=== PATIENT | male | born 1990 | race Caucasian/White ===

== ENCOUNTER 2023-06-16 12:36 | Emergency (ER) | payer MEDICAID ==
[~2023-06-16] VITALS: Ht 185.4 cm; Wt 91.2 kg
[2023-06-16 13:15] VITALS: TEMP 98.4
[2023-06-16] MEDS ORDERED: MINERAL OIL 133 ML (PYXIS) 1 EA ENEMA RC ONE (14:18)
[2023-06-16 14:19] LABS: ALBUMIN 2.9 g/dL (3.4-5.0); BILIRUBIN,DIRECT 0.1 mg/dL (0.0-0.2); BILIRUBIN,TOTAL 0.4 mg/dL (0.2-1.0); CALCIUM, SERUM 8.1 mg/dL (8.5-10.1); CREATININE 1.1 mg/dL (0.6-1.3); POTASSIUM 4.7 mmol/L (3.5-5.1); TOTAL PROTEIN, SERUM 6.6 g/dL (6.4-8.2)
[2023-06-16 14:20] LABS: INR 0.98 (0.91-1.10); PARTIAL THROMBOPLASTIN TIME 28.9 SEC (24.3-34.3); PROTHROMBIN TIME 10.4 SECS (9.2-11.1)
[2023-06-16] MEDS: MINERAL OIL 133 ML (PYXIS) 1 EA ENEMA RC ONE (14:36)
[2023-06-16] MEDS: IV NS 0.9% 1,000 ML BAG IV ONE (15:00)
[2023-06-16 15:09] LABS: BASOPHILS % (AUTO) 0.3 % (0.0-2.0); EOSINOPHILS # (AUTO) 0.1 K/uL (0.0-0.7); EOSINOPHILS % (AUTO) 2.6 % (0.0-6.0); HEMATOCRIT 35 % (39-51); HEMOGLOBIN 12.1 g/dL (13.5-17.5); LYMPHOCYTES # (AUTO) 2.3 K/uL (0.8-4.8); MEAN CORPUSCULAR HEMOGLOBIN 33 PG (26.0-33.0); MEAN CORPUSCULAR HGB CONC 35 g/dl (31.0-36.0); MEAN CORPUSCULAR VOLUME 94 fL (80-96); MONOCYTES # (AUTO) 0.3 K/uL (0.1-1.30); NEUTROPHILS # (AUTO) 1.9 K/uL (1.8-8.9); NEUTROPHILS % (AUTO) 41.1 % (43.0-81.0); PLATELET COUNT (AUTO) 126 K/uL (150-450); RED CELL DISTRIBUTION WIDTH 14.1 % (11.5-15.0); WHITE BLOOD COUNT (AUTO) 4.7 K/uL (4.3-11.0)
[2023-06-16] MEDS ORDERED: DIATR MEGLU/DIATRIZOATE SODIUM 30 ML BOTTLE (GASTROGRAPHIN) ONE (15:27)
[2023-06-16] MEDS: DIATR MEGLU/DIATRIZOATE SODIUM 120 ML BOTTLE (GASTROGRAPHIN) PO ONE (15:30)
[2023-06-16] MEDS ORDERED: IOHEXOL-300 100 ML VIAL IV ONE (17:21)
[2023-06-16] MEDS ORDERED: IV NS 0.9% 250 ML IV ONE (17:21)
[2023-06-16] MEDS ORDERED: MAGN296S72 PO (20:04)
[2023-06-16] MEDS ORDERED: NA P133E33 RC (20:04)
[2023-06-16 21:24] VITALS: BP 124/71; O2SAT 98
[2023-06-19] MEDS ORDERED: FUROSEMIDE 40 MG/4 ML VIAL ONE (12:52)
== END 2023-06-16 21:26 | disposition home or self-care (01) ==
LOC: ER 12:42
DX: K59.00 Constipation, unspecified (principal); Z79.899 Other long term (current) drug therapy; Z60.2 Problems related to living alone; Z88.0 Allergy status to penicillin
CPT/HCPCS: 36415; 80048-TC; 80076-TC; 83690-TC; 85025-TC; 85730-TC; J7050; Q9963; Q9967